=== PATIENT | male | born 1990 | race American Indian/Alaskan Native ===

== ENCOUNTER 2017-09-25 20:24 | Emergency (ER) | payer SELFPAY ==
[2017-09-25 20:46] VITALS: BP 145/84; PULSE 102; TEMP 98.3; O2SAT 99
[2017-09-25] MEDS ORDERED: cefTRIAXone (Rocephin) 250 mg Inj IM STA (21:01)
--- NOTE | 2017-09-25 21:15 | C.PDOC ---
History Of Present Illness 27 yr old male presents to the ER with complaints of dysuria and white penile discharge for the past 2 days. Patient reports history of unprotected sex. Denies fever, chills, nausea, vomiting or abdominal pain. Time Seen by Provider: 09/25/17 20:55 Chief Complaint (Nursing): Male Genitourinary History Per: Patient History/Exam Limitations: no limitations Onset/Duration Of Symptoms: Days (2) Current Symptoms Are (Timing): Still Present Past Medical History Reviewed: Historical Data, Nursing Documentation, Vital Signs Vital Signs: Last Vital Signs Temp 98.3 F 09/25/17 20:44 Pulse 102 H 09/25/17 20:44 Resp 18 09/25/17 20:44 BP 145/84 09/25/17 20:44 Pulse Ox 99 09/25/17 21:15 - Medical History PMH: Asthma Family History: States: No Known Family Hx - Social History Hx Alcohol Use: No Hx Substance Use: No - Immunization History Hx Tetanus Toxoid Vaccination: No Hx Influenza Vaccination: No Hx Pneumococcal Vaccination: No Review Of Systems Except As Marked, All Systems Reviewed And Found Negative. Constitutional: Negative for: Fever, Chills Gastrointestinal: Negative for: Nausea, Vomiting, Abdominal Pain Genitourinary: Positive for: Dysuria, Penile Pain (White) Physical Exam - Physical Exam Appears: Non-toxic, No Acute Distress Skin: Warm, Dry, No Rash Head: Atraumatic, Normacephalic Eye(s): bilateral: Normal Inspection, PERRL, EOMI Gastrointestinal/Abdominal: Normal Exam, Soft, No Tenderness, No Guarding, No Rebound Male Genital: No Testicular Tenderness, No Testicular Swelling, No Inguinal Swelling, No Scrotal Swelling, Other (No lesions. No penile discharge noted.) Extremity: Normal ROM, No Swelling Neurological/Psych: Oriented x3, Normal Speech, Normal Motor, Normal Sensation ED Course And Treatment O2 Sat by Pulse Oximetry: 99 (RA) Pulse Ox Interpretation: Normal Medical Decision Making Medical Decision Making: PLAN: * Chlamydia GC * Zithromax PO * Rocephin IM Pt educated in safe sex and advised to follow up in STD clinic Disposition - Disposition Referrals: [facility] [Outside] Disposition: HOME/ ROUTINE Disposition Time: 21:53 Condition: STABLE Additional Instructions: Please USE CONDOMS ALWAYS Have partner checked and treated as well Return to ER if worse Instructions: Sexually Transmitted Diseases (ED) - Clinical Impression Clinical Impression: Urethritis, unspecified - 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 - Scribe Statement The provider has reviewed the documentation as recorded by the Scribe Nelsy Aragon All medical record entries made by the Michelleibe were at my direction and personally dictated by me. I have reviewed the chart and agree that the record accurately reflects my personal performance of the history, physical exam, medical decision making, and the department course for this patient. I have also personally directed, reviewed, and agree with the discharge instructions and disposition.
[2017-09-25 22:09] VITALS: RESP 20
== END 2017-09-25 22:07 | disposition home or self-care (01) ==
LOC: C.ER 20:24
DX: N34.2 Other urethritis (principal)
CPT/HCPCS: 87491; 87591; 96372; 99283; J0696